=== PATIENT | male | born 1985 | race Native Hawaiian/Other Pacific Islander ===

== ENCOUNTER 2021-04-12 15:43 | Emergency (ER) | payer BC ==
[~2021-04-12] VITALS: Ht 175.3 cm; Wt 77.3 kg
[~2021-04-12 15:43] MED LIST: LORTAB 5/500 501 TAB PO; NKDA; NO HOME MEDICATIONS; PERCOCET 325 MG1 TA2 PO; [UNRECOGNIZED DRUG - SUPPLY]
[2021-04-12 18:49] VITALS: BP 131/83; PULSE 99; TEMP 100.3
== END 2021-04-12 18:49 | disposition home or self-care (01) ==
LOC: COL.ER 15:43
DX: U07.1 COVID-19 (principal); F17.210 Nicotine dependence, cigarettes, uncomplicated
CPT/HCPCS: J2405; J7030